=== PATIENT | male | born 1990 | race Caucasian/White ===

== ENCOUNTER 2018-07-03 23:08 | Emergency (ER) | payer SELFPAY ==
[2018-07-03 23:21] VITALS: BP 113/70; PULSE 80; RESP 18; TEMP 98.5; O2SAT 98
[2018-07-04 00:27] LABS: BASO # 0.1 K/uL (0.0-0.2); BASO % 0.7 % (0.0-2.0); EOS # 0.1 K/uL (0.0-0.7); EOS % 1.6 % (0.0-4.0); HEMOGLOBIN 14.8 g/dL (12.0-18.0); LYMPH # 1.5 K/uL (1.0-4.3); LYMPH % 18.1 % (20.0-40.0); MEAN CELL VOLUME 85.6 fl (80.0-94.0); MEAN CORPUSCULAR HEMOGLOBIN 28.4 pg (27.0-31.0); MEAN CORPUSCULAR HGB CONC 33.2 g/dL (33.0-37.0); MEAN PLATELET VOLUME 8.3 fl (7.2-11.7); MONO # 0.5 K/uL (0.0-0.8); NEUT # 6.2 K/uL (1.8-7.0); NEUT % 73.6 % (50.0-75.0); NRBC % 0.1 % (0.0-0.0); RBC 5.21 Mil/uL (4.40-5.90); RED CELL DISTRIBUTION WIDTH 15.2 % (11.5-14.5); WHITE BLOOD COUNT 8.4 K/uL (4.8-10.8)
[2018-07-04 00:42] LABS: ALB/GLOB RATIO 1.1 (1.0-2.1); ALBUMIN 4.2 g/dL (3.5-5.0); ALT/SGPT 56 U/L (21-72); AST/SGOT 29 U/L (17-59); BLOOD UREA NITROGEN 15 mg/dl (9-20); CALCIUM 9.5 mg/dL (8.4-10.2); GFR NON-AFRICAN AMERICAN > 60
--- NOTE | 2018-07-04 01:18 | ED PDOC ---
HPI: Abdomen Time Seen by Provider: 07/03/18 23:26 Chief Complaint (Nursing): Abdominal Pain Chief Complaint (Provider): Abdominal Pain History Per: Patient History/Exam Limitations: no limitations Onset/Duration Of Symptoms: Hrs (x24) Current Symptoms Are (Timing): Still Present Additional Complaint(s): 28 year old male presents to ED with a complaint of right-mid abdominal pain. Patient reports onset of symptom began yesterday then resolved on its own, however, it recurred today prompting ED visit. Otherwise, he denies fever, chills, nausea, vomiting, urinary complaints, or change in appetite. PMD: Dr. Micheal Trejo Past Medical History Reviewed: Historical Data, Nursing Documentation, Vital Signs Vital Signs: Last Vital Signs Temp 98.5 F 07/03/18 23:20 Pulse 80 07/03/18 23:20 Resp 18 07/03/18 23:20 BP 113/70 07/03/18 23:20 Pulse Ox 98 07/03/18 23:20 - Medical History PMH: No Chronic Diseases - Surgical History Surgical History: No Surg Hx - Family History Family History: States: Unknown Family Hx - Social History Current smoker - smoking cessation education provided: No Alcohol: None Drugs: Denies - Home Medications Home Medications: Ambulatory Orders Medication Instructions Recorded Dicyclomine [Bentyl] 20 mg PO Q12 PRN #20 tab 07/04/18 - Allergies Allergies/Adverse Reactions: Allergies Allergy/AdvReac Type Severity Reaction Status Date / Time No Known Allergies Allergy Verified 07/03/18 23:19 Review of Systems ROS Statement: Except As Marked, All Systems Reviewed And Found Negative Constitutional: Negative for: Fever, Chills Gastrointestinal: Positive for: Abdominal Pain (right-mid). Negative for: Nausea, Vomiting, Other (decreased appetite) Genitourinary Male: Negative for: Dysuria, Hematuria Physical Exam - Reviewed Nursing Documentation Reviewed: Yes Vital Signs Reviewed: Yes - Physical Exam Appears: Positive for: Non-toxic, No Acute Distress Head Exam: Positive for: ATRAUMATIC, NORMAL INSPECTION, NORMOCEPHALIC Skin: Positive for: Normal Color Eye Exam: Positive for: Normal appearance ENT: Positive for: Normal ENT Inspection Neck: Positive for: Normal Cardiovascular/Chest: Positive for: Regular Rate, Rhythm Respiratory: Positive for: Normal Breath Sounds. Negative for: Respiratory Distress Gastrointestinal/Abdominal: Positive for: Soft, Tenderness (mid-right) Extremity: Positive for: Normal ROM (upper/lower) Neurologic/Psych: Positive for: Alert, Oriented. Negative for: Motor/Sensory Deficits - Laboratory Results Result Diagrams: 07/04/18 00:18 07/04/18 00:18 - ECG O2 Sat by Pulse Oximetry: 98 (RA) Pulse Ox Interpretation: Normal Medical Decision Making Medical Decision Making: Initial Impression: 28 year old male with abdominal pain. Initial Plan: * Labs * Toradol 30mg IV * CT ABD/pelvis Time: 333 --CT ABD/pelvis Findings: The liver is of uniform attenuation without mass or defect. There is no intra or extrahepatic biliary ductal dilatation. The spleen is normal. The gallbladder is within normal limits. The pancreas is of normal contour and attenuation characteristics. There is no evidence of adrenal mass. Both kidneys demonstrate prompt and equal nephrograms. The kidneys are normal in size, shape and configuration. There is no evidence of renal or ureteral mass. No renal or ureteral calculi are identified. There is no hydroureter or hydronephrosis. No evidence for appendicitis. There is no bowel wall thickening. No evidence for small or large bowel obstruction. There is no evidence of abdominal ascites or lymphadenopathy. Uncomplicated colonic diverticulosis There is no evidence of intrinsic or extrinsic bladder mass. There is no pelvic ascites or lymphadenopathy. Images of the lung bases show no evidence of pleural or parenchymal mass. There are no pleural effusions. The bony structures are free of lytic or blastic lesions. IMPRESSION: Uncomplicated colonic diverticulosis. No evidence of acute abdominal or pelvic pathology. Time: 338 --Labs reviewed: no significant clinical abnormality. Upon provider reevaluation, patient is medically stable, reports improvement in symptoms and requires no further treatment in the ED at this time. Patient will be discharged home with Rx for Bentyl 20mg. Counseling was provided and all questions were answered regarding diagnosis. There is agreement to discharge plan. Return if symptoms persist or worsen. Clinical Impression: Diverticulitis Scribe Attestation: Documented by Deedee Ballard, acting as a scribe for Wallace Angelo MD. Provider Scribe Attestation: All medical record entries made by the Scribe were at my direction and personally dictated by me. I have reviewed the chart and agree that the record accurately reflects my personal performance of the history, physical exam, medical decision making, and the department course for this patient. I have also personally directed, reviewed, and agree with the discharge instructions and disposition. Disposition - Clinical Impression Clinical Impression: Diverticulosis - Patient ED Disposition Is Patient to be Admitted: No Counseled Patient/Family Regarding: Studies Performed, Diagnosis, Need For Followup, Rx Given - Disposition Disposition: Routine/Home Disposition Time: 03:39 Condition: STABLE Prescriptions: Dicyclomine [Bentyl] 20 mg PO Q12 PRN #20 tab PRN Reason: abdominal pain Instructions: Diverticulosis Forms: [employer] ([place])
[2018-07-04] MEDS ORDERED: Iohexol 300 100 ML IJ ONE (01:40)
[2018-07-04] MEDS ORDERED: Sodium Chloride 0.9% 50 ML IV ONE (01:40)
--- NOTE | 2018-07-04 15:54 | CT ---
Date of service: 07/04/2018 PROCEDURE: CT Abdomen and Pelvis. HISTORY: RLQ pain COMPARISON: None. TECHNIQUE: Contiguous axial images of the abdomen and pelvis following intravenous injection of approximately 95 cc Omnipaque 300 contrast material.. Coronal and Sagittal reformats generated. Radiation dose: Total exam DLP = 996.02 mGy-cm. This CT exam was performed using one or more of the following dose reduction techniques: Automated exposure control, adjustment of the mA and/or kV according to patient size, and/or use of iterative reconstruction technique. FINDINGS: LOWER THORAX: Heart size normal. No significant pericardial effusion. Tiny hiatal hernia. Mild passive/dependent type atelectasis both posterior lower lung john. Minimal linear scarring left lingular region Minimal changes of gynecomastia bilaterally. LIVER: Liver is mildly enlarged measuring nearly 20 cm in CC dimension. Mild diffuse fatty hepatic infiltration. The the the no gross lesion or ductal dilatation. The mild fatty hepatic infiltration. GALLBLADDER AND BILE DUCTS: Unremarkable. PANCREAS: Unremarkable. No mass. No ductal dilatation. SPLEEN: Unremarkable. No splenomegaly. ADRENALS: Unremarkable. KIDNEYS AND URETERS: Unremarkable. No stone or hydronephrosis. BLADDER: Grossly unremarkable. REPRODUCTIVE: Unremarkable. APPENDIX: Normal appendix. BOWEL: Unremarkable. No obstruction. No gross mural thickening. Scattered colonic diverticula without radiographic evidence of acute diverticulitis PERITONEUM: Unremarkable. No fluid collection. No free air. Tiny fat containing umbilical hernia. LYMPH NODES: Unremarkable. No enlarged lymph nodes. VASCULATURE: Unremarkable. No aortic aneurysm. No evidence of aortic calcified atherosclerosis or mural plaque BONES: No fracture or destructive lesion. OTHER FINDINGS: None. IMPRESSION: Diverticulosis without radiographic evidence of acute diverticulitis. Normal appendix Mild hepatomegaly with mild fatty hepatic infiltration.
== END 2018-07-04 03:47 | disposition home or self-care (01) ==
LOC: H.ER 23:08
DX: K57.30 Diverticulosis of large intestine without perforation or abscess without bleeding (principal); Z79.899 Other long term (current) drug therapy
CPT/HCPCS: 74177; 80053; 85025; 99283; J1885; Q9967